=== PATIENT | female | born 1950 | race Caucasian/White ===

== ENCOUNTER → 2016-04-13 | Outpatient (CLI) | payer BC ==
[~2016-04-13] MED LIST: BENADRYL25 M1 PO; CYANOCOBAL1000 MCG/1 INJ; FOLIC ACID1 MG PO; IBUPROFEN800 MG PO; LEVOTHROID50 MCG PO; LOTENSIN HCT 201 TAB PO; LOTENSIN HCT 21 EACH PO; MUCINEX SINUS-1 EACH PO; PROTONIX PO; SINGULAIR PO; ZYRTEC10 M1 PO
== END | disposition home or self-care (01) ==
LOC: CLAB 11:57
DX: D64.9 Anemia, unspecified (principal)
CPT/HCPCS: 36415; 86850; 86900; 86901; 86923

== ENCOUNTER → 2016-04-14 | Outpatient (CLI) | payer BC | END | disposition home or self-care (01) | LOC: CSSDAY 08:28 | DX: D64.9 Anemia, unspecified (principal) | CPT/HCPCS: 36430; 96374; J1200; J1940; P9016; Q0138 ==

== ENCOUNTER → 2016-04-21 | Outpatient (CLI) | payer BC | END | disposition home or self-care (01) | LOC: CSSDAY 08:46 | DX: D64.9 Anemia, unspecified (principal); Z79.899 Other long term (current) drug therapy | CPT/HCPCS: 96374; Q0138 ==

== ENCOUNTER → 2016-07-04 | Outpatient (CLI) | payer BC ==
--- NOTE | ~2016-07-04 | MY11 ---
[facility] A Service of [facility] RADIOLOGY TEXT RESULTS PATIENT: ROSA RAO LOCATION: [facility] : 54 UNIT #: [id number] AGE: [address]: Ayan Gauthier MD SEX: F ORDER DR: [id number] [facility] [address] [place], [place] [address] [id number] O MR#: [id number] Acc #: [id number] NAME: ROSA RAO. : 1950 SEX: F STUDY DATE/TIME: 07/04/2016 13:21 UNIT: [facility] ROOM: STUDY DESCRIPTION: MY Mammogram Screening Dig [place] Attending Physician: Ayan Gauthier M.D. Ordering Physician: Ayan Gauthier M.D. Primary Care Physician: Neelima Cantrell M.D. MEDICAL IMAGING REPORT This report is preliminary unless electronic signature is present REVISED REPORT SEE ADDENDUM EXAM Screening mammogram 07/04/16. HISTORY A 66-year-old with no personal history but positive family history of breast cancer. No current complaints. FINDINGS Routine digital screening views of both breasts were obtained. Study reviewed with an FDA-approved CAD device. Comparison made with outside prior studies from 09/07/2011 and 05/15/2008. Breast parenchyma shows scattered fibroglandular densities. No masses or suspicious microcalcifications are seen. IMPRESSION Negative mammogram. Routine screen 1 year is recommended. Patients over the age of 40 are entered into a reminder system with target due date for the next mammogram. A result letter will also be sent to the patient. BIRADS: 1 Negative Dictated by... Jaime Collins Jr., M.D. THIS IS AN ELECTRONICALLY VERIFIED REPORT Jaime Collins Jr., M.D. at 07/05/2016 4:27 PM [facility] A Service of [facility] RADIOLOGY TEXT RESULTS PATIENT: ROSA RAO LOCATION: [facility] : 54 UNIT #: [id number] AGE: [address]: Ayan Gauthier MD SEX: F ORDER DR: Marcy TD: 07/05/2016 13:23 JOB #: [id number] ADDENDUM The study is now compared with an outside prior mammogram dated 10/15/2014 and 09/07/2011. The current study is unchanged from the prior studies and remains negative. Routine yearly screening recommended. Patients over the age of 40 are entered into a reminder system with target due date for the next mammogram. A result letter will also be sent to the patient. BIRADS: 1 Negative Dictated by... Jaime Collins Jr., M.D. THIS IS AN ELECTRONICALLY VERIFIED REPORT Jaime Collins Jr., M.D. at 07/08/2016 10:14 AM [place] TD: 07/07/2016 15:17 JOB #: [id number] CC: [email or web address] Please Delete MEDICAL IMAGING REPORT Page 1 of 1 COPY
--- NOTE | ~2016-07-04 | CT55 ---
[facility] A Service of [facility] RADIOLOGY TEXT RESULTS PATIENT: ROSA RAO LOCATION: [facility] : 54 UNIT #: [id number] AGE: [address]: Ayan Gauthier MD SEX: F ORDER DR: [id number] [facility] [address] [place], [place] [address] [id number] O MR#: [id number] Acc #: [id number] NAME: ROSA RAO : 1950 SEX: F STUDY DATE/TIME: 07/04/2016 14:33 UNIT: [facility] ROOM: STUDY DESCRIPTION: CT Chest W Con Attending Physician: Ayan Gauthier M.D. Ordering Physician: Ayan Gauthier M.D. Primary Care Physician: Neelima Cantrell M.D. MEDICAL IMAGING REPORT This report is preliminary unless electronic signature is present EXAM CT of the chest with contrast INDICATIONS Anemia, hypertension. Patient noticed a knot on her neck and chest 1-1/[address] scan of the chest was performed with contrast. Coronal and sagittal reformatted images were obtained. This CT exam was performed with one or more of the following radiation dose reduction techniques: automatic exposure control, adjustment of mA and/or kV according to patient size, and iterative reconstruction. COMPARISON No comparison studies are available. FINDINGS There is no suspicious lymphadenopathy. Large hiatal hernia. No pleural effusion. There is curvilinear scarring or atelectasis in the lower lobes bilaterally. No suspicious pulmonary nodule or airspace consolidation. Limited imaging of the upper abdomen is unremarkable. The bone windows demonstrate multilevel degenerative changes. IMPRESSION Large hiatal hernia; otherwise, unremarkable. Dictated by... Hussein Arboleda M.D. THIS IS AN ELECTRONICALLY VERIFIED REPORT Hussein Arboleda M.D. at 07/06/2016 7:45 AM [facility] A Service of [facility] RADIOLOGY TEXT RESULTS PATIENT: ROSA RAO LOCATION: [facility] : 54 UNIT #: [id number] AGE: [address]: Ayan Gauthier MD SEX: F ORDER DR: Sudeep TD: 07/05/2016 18:04 JOB #: [id number] MEDICAL IMAGING REPORT Page 1 of 1 COPY
[2016-07-04 15:51] LABS: POC - CREATININE 0.76 mg/dL (0.44-1.03); POC - GFR >60.0 mL/min (>60)
== END | disposition home or self-care (01) ==
LOC: CWCC 13:04
PROVIDERS: Internal Medicine Hematology
DX: Z12.31 Encounter for screening mammogram for malignant neoplasm of breast (principal); Z80.3 Family history of malignant neoplasm of breast; D50.8 Other iron deficiency anemias; D50.9 Iron deficiency anemia, unspecified; K90.9 Intestinal malabsorption, unspecified; R22.2 Localized swelling, mass and lump, trunk; K44.9 Diaphragmatic hernia without obstruction or gangrene
CPT/HCPCS: 71260; 82565; G0202; Q9967

== ENCOUNTER → 2016-07-13 | Outpatient (CLI) | payer BC ==
--- NOTE | ~2016-07-13 | NM8 ---
[facility] A Service of [facility] RADIOLOGY TEXT RESULTS PATIENT: ROSA RAO LOCATION: [facility] : 54 UNIT #: [id number] AGE: [address]: Ayan Gauthier MD SEX: F ORDER DR: [id number] [facility] [address] [place], [place] [address] [id number] O MR#: [id number] Acc #: [id number] NAME: ROSA RAO : 1950 SEX: F STUDY DATE/TIME: 07/13/2016 13:44 UNIT: [facility] ROOM: STUDY DESCRIPTION: NM Bone or Joint Whole Body Attending Physician: Ayan Gauthier M.D. Ordering Physician: Ayan Gauthier M.D. Primary Care Physician: Neelima Cantrell M.D. MEDICAL IMAGING REPORT This report is preliminary unless electronic signature is present EXAM Whole body bone scan INDICATION Anemia with large knot on right clavicle for [address] chest and neck from 07/13/2016 and 07/04/2016. FINDINGS The patient was given 28.9 mCi of Tc99m MDP. 2-3 hours later, anterior and posterior images of the body were obtained. There is mild uptake in the acromioclavicular joints, right maxilla, sternoclavicular joints and knees. IMPRESSION Mild degenerative uptake in the AC joints of the shoulders, sternoclavicular joints and the knees. Otherwise, the study is normal. Dictated by... Osbaldo Rojo M.D. THIS IS AN ELECTRONICALLY VERIFIED REPORT Osbaldo Rojo M.D. at 07/14/2016 4:56 PM JAIME/jocelyne TD: 07/14/2016 11:19 JOB #: [id number] MEDICAL IMAGING REPORT [facility] A Service [facility] RADIOLOGY TEXT RESULTS PATIENT: ROSA RAO LOCATION: [facility] : 54 UNIT #: [id number] AGE: [address]: Ayan Gauthier MD SEX: F ORDER DR: Page 1 of 1 COPY
--- NOTE | ~2016-07-13 | CT114 ---
[facility] A Service of [facility] RADIOLOGY TEXT RESULTS PATIENT: ROSA RAO LOCATION: [facility] : 54 UNIT #: [id number] AGE: [address]: Ayan Gauthier MD SEX: F ORDER DR: [id number] [facility] [address] [place], [place] [address] [id number] O MR#: [id number] Acc #: [id number] NAME: ROSA RAO : 1950 SEX: F STUDY DATE/TIME: 07/13/2016 10:02 UNIT: [facility] ROOM: STUDY DESCRIPTION: CT Soft Tissue Neck W Cont Attending Physician: Ayan Gauthier M.D. Ordering Physician: Ayan Gauthier M.D. Primary Care Physician: Neelima Cantrell M.D. MEDICAL IMAGING REPORT This report is preliminary unless electronic signature is present EXAM Neck CT with contrast HISTORY Anemia over the past 6 years. Palpable abnormality near the right clavicle noted 2 months ago. TECHNIQUE Axial imaging was obtained from the skull base to the upper mediastinum with contrast. 75 mL of Isovue was used. This CT exam was performed with one or more of the following radiation dose reduction techniques: automatic exposure control, adjustment of mA and/or kV according to patient size, and iterative reconstruction. FINDINGS The skull base, parapharyngeal spaces and pharyngeal mucosal surfaces have a normal appearance. The parotid and submandibular glands are normal in size. Soft tissue planes in the hypopharynx and larynx are preserved. The trachea is widely patent. The thyroid gland is not enlarged. At the site of palpable abnormality, there is no evidence of focal mass or lymph node. No abnormalities are seen of the clavicle itself. The joint capsule at the right sternoclavicular joint is somewhat thickened compared to the left. This could potentially account for the palpable abnormality. IMPRESSION Asymmetric relative thickening of the joint capsule of the right sternoclavicular joint relative to the left likely from degenerative change. This is at the site of palpable abnormality. No distinct mass lesions are seen. No adenopathy noted. The remainder the neck CT examination is unremarkable. [facility] A Service of [facility] RADIOLOGY TEXT RESULTS PATIENT: [id number] 54 UNIT #: [id number] AGE: [address]: Ayan Gauthier MD SEX: F ORDER DR: Dictated by... Jaime Radford M.D. THIS IS AN ELECTRONICALLY VERIFIED REPORT Jaime Radford M.D. at 07/14/2016 4:33 PM MATHIEU/sita TD: 07/14/2016 11:37 JOB #: [id number] MEDICAL IMAGING REPORT Page 1 of 1 COPY
[2016-07-13 10:01] LABS: POC - CREATININE 0.79 mg/dL (0.44-1.03); POC - GFR >60.0 mL/min (>60)
== END | disposition home or self-care (01) ==
LOC: CNUC 08:40
PROVIDERS: Internal Medicine Hematology
DX: D50.8 Other iron deficiency anemias (principal); K90.9 Intestinal malabsorption, unspecified
CPT/HCPCS: 70491; 78306; 82565; A9503; Q9967